=== PATIENT | female | born 1990 | race Caucasian/White ===

== ENCOUNTER 2020-10-09 11:13 | Emergency (ER) | payer OTHER ==
[~2020-10-09] VITALS: Ht 157.5 cm; Wt 79.4 kg
[2020-10-09 11:19] VITALS: BP 137/76
--- NOTE | 2020-10-09 11:21 | NUR ---
Patient given urine cup and ambulated to lobby
--- NOTE | 2020-10-09 12:30 | NUR ---
30 y/o female from home c/o RLQ pain with nausea and vomiting since 399. Pt states abd tender to palp. right flank tenderness noted. Denies diarrhea. Afebrile upon arrival. Denies covid symptoms. VSS medhx: denies
--- NOTE | 2020-10-09 12:34 | NUR ---
Dr Arcos examining patient
[2020-10-09] MEDS ORDERED: ACETAMINOPHEN 325 MG TAB PO ONE (12:40)
[2020-10-09 13:23] LABS: BASOPHILS % (AUTO) 0.3 % (0.0-2.0); EOSINOPHILS % (AUTO) 0.1 % (0.0-4.0); HEMATOCRIT 42.2 % (36-48); LYMPHOCYTES # (AUTO) 1.1 K/uL (2.5-16.5); LYMPHOCYTES % (AUTO) 8.1 % (20.5-51.1); MEAN CORPUSCULAR HEMOGLOBIN 28 pg (27-31); MEAN CORPUSCULAR HGB CONC 33 g/dL (33-37); MEAN CORPUSCULAR VOLUME 85.9 fL (80-94); MONOCYTES # (AUTO) 0.4 K/uL (0.8-1.0); MONOCYTES % (AUTO) 3.3 % (1.7-9.3); NEUTROPHILS # (AUTO) 11.5 K/uL (1.8-7.7); NEUTROPHILS % (AUTO) 88.2 % (42.2-75.2); PLATELET COUNT (AUTO) 273 K/uL (140-450); RED BLOOD CELL COUNT(AUTO) 4.91 MIL/uL (4.20-5.40); RED CELL DISTRIBUTION WIDTH 13.6 % (11.6-13.7); WHITE BLOOD COUNT (AUTO) 13.1 K/uL (4.8-10.8)
[2020-10-09 13:38] LABS: ANION GAP 13.3 (8-16); CARBON DIOXIDE 25.7 mmol/L (21-32); CREATININE 0.7 mg/dL (0.6-1.3); TOTAL BILIRUBIN 0.3 mg/dL (0.0-1.0)
[2020-10-09 14:50] VITALS: BP 137/76
--- NOTE | 2020-10-09 14:51 | NUR ---
Patient discharged with v/s stable. Written and verbal after care instructions given and explained. Patient verbalized understanding. Ambulatory with steady gait. All questions addressed prior to discharge. Advised to follow up with PMD.
== END 2020-10-09 14:51 | disposition home or self-care (01) ==
LOC: MED 11:13
DX: R03.0 Elevated blood-pressure reading, without diagnosis of hypertension (principal); R10.9 Unspecified abdominal pain; R11.10 Vomiting, unspecified
CPT/HCPCS: 36415; 80053; 81002; 81025; 83690; 85025; 99284

== ENCOUNTER 2024-05-13 07:52 | Emergency (ER) | payer OTHER ==
[~2024-05-13] VITALS: Ht 160 cm; Wt 85.3 kg
[2024-05-13 08:06] VITALS: BP 127/81; PULSE 79; RESP 16; TEMP 98; O2SAT 98
[2024-05-13 08:29] LABS: BILIRUBIN,URINE NEGATIVE (NEGATIVE); BLOOD, URINE 3+ (NEGATIVE); COLOR,URINE YELLOW (YELLOW); LEUKOCYTE ESTERASE ,URINE 1+ (NEGATIVE); NITRITE, URINE NEGATIVE (NEGATIVE); PROTEIN,URINE 2+ (NEGATIVE); UGLUCOSE NEGATIVE (NEGATIVE); UROBILINOGEN,URINE 0.2 EU/dL (0.2 - 1)
[2024-05-13 08:34] LABS: APPEARANCE,URINE SLIGHTLY HAZY (CLEAR)
[2024-05-13 08:38] LABS: RBC,URINE 20-50 /HPF (0-5)
[2024-05-13 08:39] LABS: BACTERIA,URINE OCCASSIONAL /HPF (None Seen); SQUAMOUS EPITHELIAL CELL,UR 0-3 (FEW) /LPF (0-3 (FEW))
[2024-05-13] MEDS ORDERED: PYR100 PO (08:50)
[2024-05-13] MEDS ORDERED: CEPH-588 PO (08:50)
[2024-05-13] MEDS ORDERED: IBUP-2213 PO (08:50)
== END 2024-05-13 09:02 | disposition home or self-care (01) ==
LOC: MED 07:52
DX: N12 Tubulo-interstitial nephritis, not specified as acute or chronic (principal); Z79.899 Other long term (current) drug therapy
CPT/HCPCS: 81001; 81025; 87086; 99283